=== PATIENT | female | born 1990 | race Caucasian/White ===

== ENCOUNTER 2017-04-05 12:03 | Emergency (ER) ==
[2017-04-05 12:12] VITALS: BP 133/82; TEMP 99.4; BMI 31.1
--- NOTE | 2017-04-05 13:05 | ED.PDOC ---
General ED Provider: Dr. PAO TALAVERA JR Chief Complaint: Finger Pain/Injury Stated Complaint: sb PATIENT STATES SHE WAS PLAYING WITH HER BOYS AND INJURED HER LEFT THIRD FINGER. UNABLE TO WIGGLE OR MOVE THE FINGER.[End] 99.4 92 20 98% 133/82 8/10 note this is her left ring finger (fourth finger)ecchymoses at base tender no relief from distraction of finger Time Seen by Physician: 13:04 Mode of Arrival: Walk-In Information Source: Patient, Family Exam Limitations: No limitations Primary Care Provider: PARISH CARL Nursing and Triage Documentation Reviewed and Agree: No Review of Systems - Review Of Systems Constitutional: Reports: No symptoms Eyes: Reports: No symptoms Ears, Nose, Mouth, Throat: Reports: No symptoms Respiratory: Reports: No symptoms Cardiac: Reports: No symptoms GI: Reports: No symptoms : Reports: No symptoms Musculoskeletal: Reports: Joint pain Skin: Reports: Bruising Neurological: Reports: No symptoms Endocrine: Reports: No symptoms Hematologic/Lymphatic: Reports: No symptoms All Other Systems: Other Past Medical History - Past Medical History Endocrine: Reports: None Cardiovascular: Reports: None Respiratory: Reports: None Hematological: Reports: None Gastrointestinal: Reports: None Genitourinary: Reports: None Neuro/Psych: Reports: None Musculoskeletal: Reports: None Cancer: Reports: None Last Menstrual Period: 03/31/17 - Surgical History General Surgical History: Reports: Unknown - Family History Family History: Reports: Unknown - Social History Smoking Status: Smoker current status unknown Hx Substance Use: No Alcohol Screening: None - Immunizations Tetanus Shot up to Date: Yes Physical Exam - Physical Exam Appearance: Well-appearing, Obese Pain Distress: Severe Neck: Supple Respiratory: Airway patent Musculoskeletal: Normal strength, Limited ROM (left ring finger pain with volar MCP ecchymosis) Skin: Warm (moist) Neurological: Sensation intact, Alert, Oriented (tearful) Interpretation - Radiology Interpretation Radiology Interpretation By: ED Physician Radiology Results: Negative Exam Interpreted: Other (finger) Critical Care Note - Critical Care Note Total Time (mins): 0 Course - Course Orders, Labs, Meds: Orders Category Date Time Status Splint [ED SPLINT APPLICATION] .ONCE EMERGENCY 04/05/17 13:51 Active Hydrocodone Bit/Acetaminophen [Tupman 7.5-325] MEDS 04/05/17 13:11 Discontinued 1 tab PO ONCE STA FINGER(S), LEFT MIN 2V Stat RADS 04/05/17 13:04 Completed Medications Discontinued Medications Generic Name Dose Route Start Last Admin Trade Name Freq PRN Reason Stop Dose Admin Acetaminophen/Hydrocodone Bitart 1 tab 04/05/17 13:11 04/05/17 13:31 Tupman 7.5-325 PO 04/05/17 13:12 1 tab ONCE STA Administration Vital Signs: Temp Pulse Resp BP Pulse Ox 04/05/17 12:04 99.4 F 92 H 20 133/82 98 Departure - Departure Time of Disposition: 13:53 Disposition: HOME SELF-CARE Discharge Problem: Injury of finger Instructions: Contusion in Adults (ED) Condition: Fair Pt referred to PMD for follow-up: Yes Additional Instructions: ice 20 minutes three times a day rest elevate recheck PMD one week Prescriptions: Hydrocodone/Acetaminophen [Tupman 7.5-325 Tablet] 1 each PO Q4-6H PRN #14 tablet PRN Reason: pain Allergies/Adverse Reactions: Allergies latex Adverse Reaction (Verified 05/31/16 21:41) red 40 dye Adverse Reaction (Uncoded 05/31/16 21:41) Home Medications: Ambulatory Orders Hydrocodone/Acetaminophen [Tupman 7.5-325 Tablet] 1 each PO Q4-6H PRN #14 tablet 04/05/17
[2017-04-05] MEDS ORDERED: NORCO 7.5-325 PO STA (13:11)
--- NOTE | 2017-04-05 14:00 | DI ---
EXAM: Three views left finger. HISTORY: Trauma, left fourth digit. DATE: 04/05/2017. COMPARISON: None. TECHNIQUE: AP, lateral, and oblique views of the left fourth digit were obtained. FINDINGS: No fracture line is seen. There is no dislocation. A tiny calcification located anterio r to the left fourth proximal interphalangeal joint likely represents a small ossicle. A similar-ap pearing calcification is located anterior to the left fifth proximal interphalangeal joint. The adalberto nt spaces are maintained. No radiodense foreign bodies are identified. IMPRESSION: No acute osseous abnormalities of the left fourth digit.
== END 2017-04-05 14:22 | disposition home or self-care (01) ==
LOC: ED 12:03
DX: S60.042A Contusion of left ring finger without damage to nail, initial encounter (principal); W22.8XXA Striking against or struck by other objects, initial encounter
CPT/HCPCS: 99282

== ENCOUNTER 2018-03-07 15:13 | Outpatient (CLI) | END 2018-03-07 15:14 | disposition home or self-care (01) | LOC: CAR 15:13 | DX: G47.31 Primary central sleep apnea (principal) | CPT/HCPCS: 95810 ==

== ENCOUNTER 2018-03-08 08:23 | Outpatient (CLI) ==
--- NOTE | 2018-03-08 09:48 | US ---
EXAM: ULTRASOUND ABDOMEN LIMITED HISTORY: Epigastric abdominal pain FINDINGS: Ultrasound abdomen, limited. Lira-scale ultrasound and color Doppler was performed. Live r size measured 12.3 cm, within normal limits. The liver parenchyma demonstrated normal sonographic a ppearance without evidence of intrahepatic biliary dilatation or focal lesion. Patent and hepatopedal main portal vein. No evidence of gallbladder stones or sludge. Gallbladder wall thickness was normal at 0.24 centimete rs and the common duct diameter normal at 0.32 centimeters. The pancreas was poorly seen. No visible ascites. IMPRESSION: No gallbladder pathology. Pancreas poorly seen.
== END 2018-03-08 08:24 | disposition home or self-care (01) ==
LOC: RAD 08:23
DX: R10.13 Epigastric pain (principal)

== ENCOUNTER 2018-06-10 12:02 | Emergency (ER) ==
[2018-06-10 12:26] VITALS: BP 133/88; TEMP 97.1; BMI 32.8
--- NOTE | 2018-06-10 14:24 | DI ---
EXAM: CHEST FRONTAL AND LATERAL VIEWS HISTORY: Chest pain. COMPARISON: None FINDINGS: Heart size and mediastinal contour within normal limits. No acute infiltrates. Normal vascularity with no pleural fluid or pneumothorax. The bony thorax has no acute finding. IMPRESSION: No acute process.
--- NOTE | 2018-06-10 16:18 | ED.PDOC ---
General ED Provider: Dr. CLEO PEREZ Chief Complaint: Chest Pain Stated Complaint: chest pain Time Seen by Physician: 12:17 Mode of Arrival: Walk-In Information Source: Patient Exam Limitations: No limitations Primary Care Provider: PARISH CARL Nursing and Triage Documentation Reviewed and Agree: Yes Does patient meet sepsis criteria?: Yes If yes, has appropriate treatment been initiated?: No System Inflammatory Response Syndrome: Not Applicable Sepsis Protocol: For patient's 13 years and over: Temp is 96.8 and below OR 101 and greater Pulse >90 BPM Resp >20/minute Acutely Altered Mental Status Are patient's symptoms suggestive of a new infection, such as: -Pneumonia -Skin, Soft Tissue -Endocarditis -UTI -Bone, Joint Infection -Implantable Device -Acute Abdominal Infection -Wound Infection -Meningitis -Blood Stream Catheter Infection -Unknown Cardiovascular Complaint Exam - Chest Pain Complaint/Exam Onset: Gradual Duration: today under alot of stress work , family divorce Symptoms Are: Still present Timing: Constant Length of Chest Pain Episodes: today Initial Severity: Mild Current Severity: None Location: Reports: Midsternal Pain Radiates: Reports: None Character: Reports: Dull Aggravating: Reports: None Alleviating: Reports: None Associated Signs and Symptoms: Denies: Diaphoresis, Nausea, Vomiting, Fever, Palpitations, Cough, Hemoptysis, Back pain, Abdominal pain, Dizziness, Short of air, Calf pain, Calf swelling Related Surgical History: Reports: None History of Healthcare-Acquired Pneumonia: Reports: No AMI/ACS Risk Factors: Reports: None TAD Risk Factors: Reports: None Pulmonary Embolism Risk Factors: Reports: None Prior Care for this Complaint: No Recent Stress Test: No Recent Echo/LV Function: No JVD Present: No Subcutaneous Emphysema Present: No Diminshed Breath Sounds: No Reproducible Chest Wall Pain: No Bilateral Pulses Present: No If Risk Factors for AMI/ACS Consider: EKG, Cardiac Enzymes Review of Systems - Review Of Systems Constitutional: Reports: No symptoms Eyes: Reports: No symptoms Ears, Nose, Mouth, Throat: Reports: No symptoms Respiratory: Reports: No symptoms Cardiac: Reports: Chest pain GI: Reports: No symptoms : Reports: No symptoms Musculoskeletal: Reports: No symptoms Skin: Reports: No symptoms Neurological: Reports: No symptoms Endocrine: Reports: No symptoms Hematologic/Lymphatic: Reports: No symptoms All Other Systems: Reviewed and Negative Past Medical History - Past Medical History Previously Healthy: Yes Endocrine: Reports: None Cardiovascular: Reports: None Respiratory: Reports: None Hematological: Reports: None Gastrointestinal: Reports: None Genitourinary: Reports: None Neuro/Psych: Reports: None Musculoskeletal: Reports: None Cancer: Reports: None Last Menstrual Period: 2 1/2 weeks ago - Surgical History General Surgical History: Reports: Unknown - Family History Family History: Reports: Unknown - Social History Smoking Status: Current every day smoker, Light tobacco smoker Hx Substance Use: No Alcohol Screening: Occasionally Physical Exam - Physical Exam Appearance: Well-appearing, No pain distress, Well-nourished Eyes: RYAN, EOMI, Conjunctiva clear ENT: Ears normal, Nose normal, Oropharynx normal Respiratory: Airway patent, Breath sounds clear, Breath sounds equal, Respirations nonlabored Cardiovascular: RRR, Pulses normal, No rub, No murmur GI/: Soft, Nontender, No masses, Bowel sounds normal, No Organomegaly Musculoskeletal: Normal strength, ROM intact, No edema, No calf tenderness Skin: Warm, Dry, Normal color Neurological: Sensation intact, Motor intact, Reflexes intact, Cranial nerves intact, Alert, Oriented Psychiatric: Affect appropriate, Mood appropriate Interpretation - Radiology Interpretation Radiology Interpretation By: Radiologist Radiology Results: No acute changes - Fiction And Nonfiction Prose Writer Rate: Normal Rhythm: Sinus Ectopy: None - EKG Interpretation Rate: Normal Rhythm: Sinus Ectopy: None Critical Care Note - Critical Care Note Total Time (mins): 0 Course - Course Hematology/Chemistry: 06/10/18 13:15 06/10/18 13:15 Orders, Labs, Meds: Lab Review 06/10/18 06/10/18 06/10/18 12:15 13:15 13:15 WBC 11.45 H RBC 4.41 Hgb 13.2 Hct 39.1 MCV 88.7 MCH 29.9 MCHC 33.8 RDW Coeff of Simeon 13.4 Plt Count 314 Immature Gran % (Auto) 0.3 Neut % (Auto) 69.5 Lymph % (Auto) 24.1 Otero % (Auto) 4.0 Eos % (Auto) 1.7 Baso % (Auto) 0.4 Immature Gran # (Auto) 0.0 Neut # (Auto) 7.9 H Lymph # (Auto) 2.8 Otero # (Auto) 0.5 Eos # (Auto) 0.2 Baso # (Auto) 0.1 Sodium 139 Potassium 4.1 Chloride 106 Carbon Dioxide 26 Anion Gap 11.1 BUN 7 Creatinine 0.68 Estimated GFR (MDRD) 105.00 BUN/Creatinine Ratio 10.29 Glucose 96 Calcium 8.9 Total Bilirubin 0.4 AST 11 L ALT 11 L Alkaline Phosphatase 52 Total Creatine Kinase 65 Troponin I < 0.0100 Total Protein 6.7 Albumin 3.6 Globulin 3.1 Albumin/Globulin Ratio 1.16 Serum , Qual Negative Orders Category Date Time Status EKG-(ED ONLY) Stat CARDIO 06/10/18 13:06 Completed CBC W/ AUTO DIFF Stat LAB 06/10/18 13:15 Completed COMPREHENSIVE METABOLIC PANEL Stat LAB 06/10/18 13:15 Completed CREATINE KINASE Stat LAB 06/10/18 13:15 Completed SERUM Stat LAB 06/10/18 12:15 Completed TROPONIN I Stat LAB 06/10/18 13:15 Completed CHEST, 2 VIEWS PA & LAT Stat RADS 06/10/18 13:15 Completed Vital Signs: Temp Pulse Resp BP Pulse Ox 06/10/18 12:14 97.1 F L 74 20 133/88 98 MADHU Risk Score MADHU Risk Score: Risk Score Odds of by 30D 0 0.1 (0.1-0.2) 1 0.3 (0.2-0.3) 2 0.4 (0.3-0.5) 3 0.7 (0.6-0.9) 4 1.2 (1.0-1.5) 5 2.2 (1.9-2.6) 6 3.0 (2.5-3.6) 7 4.8 (3.8-6.1) Departure - Departure Time of Disposition: 16:18 Disposition: HOME SELF-CARE Discharge Problem: Chest pain, Anxiety Instructions: Chest Pain (ED), Anxiety (ED) Condition: Good Pt referred to PMD for follow-up: Yes IPMP verified?: No Additional Instructions: Please call your Family Physician as soon as possible to schedule a follow-up appointment. Allergies/Adverse Reactions: Allergies latex Adverse Reaction (Verified 06/10/18 12:27) red 40 dye Adverse Reaction (Uncoded 05/31/16 21:41) Home Medications: Ambulatory Orders Diazepam [Valium] 5 mg PO DIRECTED PRN 06/10/18 Tramadol HCl 50 mg PO BID PRN 06/10/18
== END 2018-06-10 16:46 | disposition home or self-care (01) ==
LOC: ED 12:02
DX: R07.9 Chest pain, unspecified (principal); F41.9 Anxiety disorder, unspecified; F17.210 Nicotine dependence, cigarettes, uncomplicated
CPT/HCPCS: 36415; 80053; 82550; 84484; 84703; 85025; 93005; 93010; 99283